=== PATIENT | female | born 1990 | race American Indian/Alaskan Native ===

== ENCOUNTER 2017-11-06 19:19 | Emergency (ER) | payer OTHER, MEDICAID ==
[2017-11-06 21:00] VITALS: BP 112/55
[2017-11-07] MEDS ORDERED: MOTRIN PO ONE (03:20)
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
== END 2017-11-07 03:40 | disposition home or self-care (01) ==
LOC: ED 19:19
DX: M54.5 Low back pain (principal); V89.2XXA Person injured in unspecified motor-vehicle accident, traffic, initial encounter; Y93.89 Activity, other specified; Y92.89 Other specified places as the place of occurrence of the external cause; Y99.8 Other external cause status; F17.200 Nicotine dependence, unspecified, uncomplicated
CPT/HCPCS: 99282